=== PATIENT | female | born 1985 | race Asian ===

== ENCOUNTER → 2017-09-29 | Outpatient (CLI) | payer OTHER | END | disposition home or self-care (01) | LOC: US 09:00 | PROC: BR30ZZZ Magnetic Resonance Imaging (MRI) of Cervical Spine (ICD-10-PCS; principal; 2017-09-29) | PROC: BW40ZZZ Ultrasonography of Abdomen (ICD-10-PCS; 2017-09-29) | DX: M54.2 Cervicalgia (principal); R10.9 Unspecified abdominal pain | CPT/HCPCS: Q0092 ==